=== PATIENT | male | born 1935 | race Caucasian/White ===

== ENCOUNTER 2019-08-30 06:02 | Day surgery (SDC) | payer MEDICARE, OTHER ==
[2019-08-28 17:13] VITALS: BP 138/74
[2019-08-28 17:50] LABS: BASOPHILS % (AUTO) 0.9 % (0.0-5.0); LYMPHOCYTES % (AUTO) 23.1 % (21.0-51.0); MEAN CORPUSCULAR HEMOGLOBIN 29.6 pg (27.0-33.0); MEAN CORPUSCULAR HGB CONC 33.4 g/dL (32.0-36.0); MEAN CORPUSCULAR VOLUME 88.6 fL (79-99); MONOCYTES % (AUTO) 9.7 % (3.0-13.0); NEUTROPHILS % (AUTO) 60.9 % (40.0-77.0); PLATELET COUNT (AUTO) 190 K/uL (130-400); RED BLOOD CELL COUNT(AUTO) 4.63 MIL/uL (4.50-6.20); RED CELL DISTRIBUTION WIDTH 12.5 % (11.0-15.5); WHITE BLOOD COUNT (AUTO) 9.9 K/uL (4.8-10.8)
[2019-08-28 18:00] LABS: CREATININE 1.2 mg/dL (0.5-1.5); POTASSIUM 4.5 mmol/L (3.5-5.1)
[2019-08-28 18:05] LABS: INR 0.95 (0.85-1.15); PARTIAL THROMBOPLASTIN TIME 26.8 SEC (26.3-35.5)
[~2019-08-30] VITALS: Ht 172.7 cm; Wt 93.9 kg
[2019-08-30] VITALS (9 sets, daily range): BP systolic 108–136; BP diastolic 63–80
[~2019-08-30 06:02] MED LIST: AEC81 PO; AMLO10TA7 PO; LOSA100T58 PO; METO-409 PO
--- NOTE | 2019-08-30 06:15 | NUR ---
PATIENT ARRIVED PATIENT ARRIVED TO DAY PATIENT FROM HOME ACCOMPANIED BY GIRLFRIEND (PHONG). PATIENT AAOX3, RESPIRATIONS UNLABORED, VITAL SIGNS STABLE, DENIES ANY PAIN AT THIS TIME. PROCEDURE EXPLAINED AND VERIFIED WITH PATIENT. HOSPITAL ROUTINE EXPLAINED AND ALL QUESTIONS ANSWERED. PATIENT VERBALIZED UNDERSTANDING.
[2019-08-30] MEDS ORDERED: BUPIVACAINE/PF 0.25% 30ML VIAL IJ ONE (07:19)
[2019-08-30] MEDS ORDERED: MEPERIDINE-PF 25 MG/ML SYG ONE ×4 (07:20→08:25)
[2019-08-30] MEDS ORDERED: MIDAZOLAM HCL 1 MG/ML 2ML VIAL ONE ×4 (07:20→08:24)
[2019-08-30] MEDS ORDERED: LIDOCAINE HCL 1% MDV 50ML VIAL ONE (07:20)
[2019-08-30] MEDS ORDERED: CEFAZOLIN SODIUM 1 GM VIAL ONE (07:20)
--- NOTE | 2019-08-30 07:20 | NUR ---
PATIENT TAKEN TO [employer] INSTALLER VIA BED BY ZULMA ROGERS
[2019-08-30] MEDS ORDERED: CEFAZOLIN SODIUM 1 GM VIAL IVP ONE (08:00)
[2019-08-30] MEDS ORDERED: ACETAMINOPHEN-CODEINE 300/30MG TAB PO PRN (09:15)
[2019-08-30] MEDS ORDERED: ACET1TAB12 PO (09:17)
--- NOTE | 2019-08-30 09:30 | NUR ---
PATIENT RETURNED TO CALENDERER VIA BED BY ZULMA ROGERS. PATIENT AAOX3, RESPIRATIONS UNLABORED, VITAL SIGNS STABLE, DENIES ANY PAIN AT THIS TIME. DRESSING TO UPPER CHEST WALL IN PLACE WITH SCANT AMOUNT OF BRIGHT RED BLOOD NOTED. INCISION IS NOT ACTIVELY BLEEDING, NO DRAINAGE NOTED. NO HEMATOMA NOTED. SMALL AMOUNT OF SWELLING NOTED TO SITE.
--- NOTE | 2019-08-30 10:00 | NUR ---
DRESSING/ SITE CHECK DRESSING TO LEFT UPPER CHEST WALL IS DRY AND INTACT, NO DRAINAGE NOTED. SCANT AMOUNT OF BLOOD NOTED TO DRESSING, BRIGHT RED. NO ACTIVE BLEEDING NOTED, NO HEMATOMA. SMALL AMOUNT OF SWELLING NOTED TO SITE. PATIENT DENIES ANY PAIN AT THIS TIME.
--- NOTE | 2019-08-30 11:56 | NUR ---
DISCHARGE INSTRUCTIONS PROVIDED TO PATIENT AND PATIENT'S SIGNIFICANT OTHER (CAMILO). PRESCRIPTIONS PROVIDED AND HANDOUTS PROVIDED ON SURGICAL SITE INFECTIONS AND EXPLAINED TO PATIENT/GIRLFRIEND. INSTRUCTED TO KEEP INCISION CLEAN/DRY AND CHANGE GAUZE ONCE A DAY FOR 5 DAYS THEN AFTER FIFTH DAY PT CAN GET INCISION WET AND CLEAN WITH NORMAL SOAP AND WATER. BOTH PATIENT AND SIGNIFICANT OTHER VERBALIZED UNDERSTANDING.
== END 2019-08-30 12:40 | disposition home or self-care (01) ==
LOC: DAH 06:02
PROVIDERS: ATTEND Internal Medicine Cardiovascular Disease
DX: Z45.02 Encounter for adjustment and management of automatic implantable cardiac defibrillator (principal); I50.22 Chronic systolic (congestive) heart failure; Z79.82 Long term (current) use of aspirin; Z79.899 Other long term (current) drug therapy
CPT/HCPCS: 33264; 36415; 80048; 85025; 85610; 85730; 93005; A4215; A4216; A4222; A4223 ×3; A4606; A4663; C1882; J0690; J2175 ×4; J2250 ×4; J3490 ×2; 99156; 99157